=== PATIENT | male | born 1990 | race Caucasian/White ===

== ENCOUNTER 2019-11-01 02:54 | Emergency (ER) | payer OTHER, MEDICAID, SELFPAY ==
--- NOTE | 2019-11-01 03:02 | ED.GENADULT ---
HPI - General Adult General Chief complaint: Neck Pain/Injury Stated complaint: tightness in right shoulder/neck/legs Time Seen by Provider: 11/01/19 03:00 Source: patient Mode of arrival: Ambulatory Limitations: no limitations History of Present Illness HPI narrative: Patient is a 29-year-old male with a history of hydrocephalus. Has a SOIL CHECKER shunt in place here for evaluation of left sided neck/back/jaw muscle contractions. Patient states that it was a fairly sudden onset shortly prior to arrival. He states that he was sitting at that time. He states he is about to go to sleep. He reports that he is in no pain is just his muscles on the left side of his body are ?angela ?he states that is fairly uncomfortable. Has never had anything like this in the past. Has not tried anything for the symptoms prior to arrival Related Data Home Medications Medication Instructions Recorded Confirmed . (No Home Medications) #0 02/09/10 Allergies Allergy/AdvReac Type Severity Reaction Status Date / Time No Known Drug Allergies Allergy Verified 11/01/19 03:06 Review of Systems Constitutional Constitutional: Denies fever(s) and Denies headache(s) ENT Ears, Nose, Mouth, and Throat: Denies vertigo, Denies dizziness and Denies headache(s) Comments: Muscles angela on left-sided neck and shoulder Cardiovascular Cardiovascular: Denies chest pain and Denies dyspnea Respiratory Respiratory: Denies dyspnea Musculoskeletal Comments: The side of my body muscle contractions Integumentary/Breasts Skin/Breast: Denies lesions and Denies rash Neurologic Neurologic: Denies behavioral changes, Denies vertigo, Denies dizziness and Denies headache(s) Comments: Muscle contractions Psychiatric Psychiatric: Denies behavioral changes Hematologic/Lymphatic Hematologic/Lymphatic: Denies easy bleeding and Denies easy bruising Allergic/Immunologic Allergic/Immunologic: Denies urticaria Patient History Medical History Hydrocephalus (Acute) Social History Smoking Status: Current every day smoker Exam Initial Vital Signs Initial Vital Signs: Vital Signs Temperature 97.2 F L 11/01/19 03:03 Pulse Rate 108 H 11/01/19 03:03 Respiratory Rate 20 11/01/19 03:03 Blood Pressure 176/115 H 11/01/19 03:03 Pulse Oximetry 97 11/01/19 03:03 Const General: diaphoretic Limitations: mental status not altered HENMT Head: normal to inspection and normocephalic Neck Neck: No anterior neck swelling, No lymphadenopathy and torticollis Resp Effort & Inspection: normal respiratory effort Auscultation: clear to auscultation bilaterally Cardio Rate: tachycardic Rhythm: regular rhythm Back/Spine/Pelvis Other: Patient does have muscle fullness on the left side of his neck over the rhomboid/latissimus/trapezius compared to the right in Skin General: warm and other (Diaphoretic) Extrem General: capillary refill normal Psych Appearance: grossly normal and well kempt Course Orders Ordered: Discontinued Medications Cyclobenzaprine HCl (Flexeril 10 Mg Prepack) 1 bottle MISC SEEINSTR ONE Stop: 11/01/19 04:29 Diazepam (Valium) 5 mg PO NOW ONE Stop: 11/01/19 03:07 Last Admin: 11/01/19 03:14 Dose: 5 mg Documented by: DAVID Ketorolac Tromethamine (Toradol) 30 mg IM NOW ONE Stop: 11/01/19 03:07 Last Admin: 11/01/19 03:14 Dose: 30 mg Documented by: DAVID Vital Signs Vital signs: Vital Signs - 8 hr 11/01/19 03:03 11/01/19 03:44 11/01/19 04:00 Temperature 97.2 F L Pulse Rate 108 H 81 45 L Respiratory Rate 20 26 H 15 Blood Pressure 176/115 H Pulse Oximetry 97 98 98 11/01/19 04:01 11/01/19 04:30 Temperature Pulse Rate 43 L 75 Respiratory Rate 14 16 Blood Pressure 105/54 L 106/57 L Pulse Oximetry 98 96 Medical Decision Making [facility] [place] Narrative Medical decision making narrative: Patient reports a vast improvement of his symptoms after the medications given here in the ER. His tachycardia improved to the point where patient was somewhat bradycardic into the upper 40s/low 50s. This was a sinus bradycardia on the monitor. This improved very quickly when patient was stimulated. He was able to sleep for short period of time. Low suspicion for CVA given his clinical presentation. Unsure the exact etiology of why his muscle spasms however given his improvement of symptoms and lack of other findings will hold on further workup for now. He was given return precautions and follow-up instructions. He expressed understanding and agreement Discharge Plan Departure Patient Disposition: Home Clinical Impression: Muscle spasm Instructions: DI for Muscle Spasm Activity Restrictions/Additional Instructions: You have no restrictions on your activities. Use the muscle relaxers as needed. Recommend heat/ice and light stretching and massage. Contact your primary provider for follow-up. Return to the emergency department for any new or worsening symptoms Prescriptions: No Action . (No Home Medications) Qty: 0 RF: 0 Referrals: Emily Barnes MD [Primary Care Provider] -
[2019-11-01 03:03] VITALS: BP 176/115; PULSE 108; RESP 20; TEMP 36.2; O2SAT 97; BMI 27.3
[2019-11-01] MEDS: KETOROLAC 60 MG/2 ML VIAL 30 MG IM (03:14)
[2019-11-01] MEDS: diazePAM 5 MG TABLET PO (03:14)
--- NOTE | 2019-11-01 03:21 | PC.NURSE ---
Pt reports all over muscle spasms. Diaphoretic. Pt medicated per order.
[2019-11-01 03:44] VITALS: PULSE 81; RESP 26; O2SAT 98
[2019-11-01 04:00] VITALS: PULSE 45; RESP 15; O2SAT 98
[2019-11-01 04:01] VITALS: BP 105/54; PULSE 43; RESP 14; O2SAT 98
[2019-11-01 04:30] VITALS: BP 106/57; PULSE 75; RESP 16; O2SAT 96
[2019-11-01] MEDS: CYCLOBENZAPRINE 10 MG PREPACK 1 BOTTLE MISC (04:36)
== END 2019-11-01 04:40 | disposition home or self-care (01) ==
PROVIDERS: Emergency Provider Emergency Medicine; Family Provider Pediatrics; PCP Pediatrics
DX: M62.838 Other muscle spasm (principal); G91.9 Hydrocephalus, unspecified; R00.1 Bradycardia, unspecified
CPT/HCPCS: 96372; 99283; J1885

== ENCOUNTER 2019-11-02 01:07 | Emergency (ER) | payer OTHER, MEDICAID, SELFPAY ==
[2019-11-02 01:10] VITALS: BP 161/107; PULSE 79; RESP 20; TEMP 36.5; O2SAT 98; BMI 27.3
[2019-11-02] MEDS: diphenhydrAMINE 50 MG/ML VIAL 25 MG IV (01:25)
--- NOTE | 2019-11-02 01:29 | ED_ITS ---
HPI - General Adult General Chief complaint: Neuro Symptoms/Deficit Stated complaint: can't talk right - jaw wont close muscle spasm Time Seen by Provider: 11/02/19 01:09 Source: patient Mode of arrival: Ambulatory Limitations: no limitations History of Present Illness HPI narrative: 29-year-old male who was evaluated by myself approximately 24 hours ago for left-sided neck can face muscle spasms. He was given Valium and sent home with Flexeril. At the time of his discharge from that visit he stated that he was still having some jaw/facial twitching however he reported that his symptoms had much improved. After discharge from that visit he went home and went to bed. He stated that he woke up and felt ?normal? he was not having any symptoms throughout the day however as the afternoon went on and into the evening he stated that he started to feel like his jaw was starting to twitch again. He took the Flexeril that he was sent home with any thought that potentially his symptoms were improving a small amount however they got to the point to where he was having problems speaking and swallowing. He stated that his speaking problems were because he felt like his jaw was twitching in because he was having involuntary yawning movements. He states that he could swallow but because he was yawning so much this is why he was drooling. He was not having any neck symptoms like we had last evening. He denied any other associated symptoms. He denied any drugs other than the Flexeril that he was given last evening. Denies any alcohol. No new exposures. Related Data Home Medications Medication Instructions Recorded Confirmed . (No Home Medications) #0 02/09/10 Allergies Allergy/AdvReac Type Severity Reaction Status Date / Time No Known Drug Allergies Allergy Verified 11/01/19 03:06 Review of Systems Constitutional Constitutional: Denies chills, Denies fatigue, Denies fever(s), Denies frequent falls, Denies headache(s) and Denies weakness Eyes Eyes: Denies blurry vision, Denies change in vision and Denies diplopia ENT Ears, Nose, Mouth, and Throat: Denies dental pain, Denies vertigo, Denies dizziness, Denies otalgia, Denies facial pain, Denies headache(s), Denies nasal congestion, Denies nasal discharge, Denies disequilibrium, Denies sinus pain and Denies sore throat Comments: Twitching/muscle spasm left side of face Cardiovascular Cardiovascular: Denies chest pain, Denies irregular heart rhythm, Denies lightheadedness and Denies dyspnea Respiratory Respiratory: Denies dyspnea Gastrointestinal Gastrointestinal: Denies abdominal pain, Denies change in bowel habits, Denies diarrhea, Denies nausea and Denies vomiting Genitourinary Genitourinary: Denies oliguria, Denies difficulty urinating, Denies dysuria, Denies urinary frequency, Denies urinary hesitancy and Denies urinary incontine nce Genitourinary: Denies urinary frequency, Denies dysuria, Denies urinary incontinence and Denies urinary hesitancy Musculoskeletal Musculoskeletal: Denies tingling Comments: Left-sided face twitching Integumentary/Breasts Skin/Breast: Denies lesions and Denies rash Neurologic Neurologic: Denies behavioral changes, Denies confusion, Denies vertigo, Denies dizziness, Denies frequent falls, Denies headache(s), Denies tingling, Denies disequilibrium and Denies weakness Psychiatric Psychiatric: Denies anxiety, Denies behavioral changes, Denies confusion and De nies depression Endocrine Endocrine: Denies fatigue Hematologic/Lymphatic Hematologic/Lymphatic: Denies easy bleeding and Denies easy bruising Allergic/Immunologic Allergic/Immunologic: Denies urticaria Patient History Medical History Alcohol abuse (Acute) Hydrocephalus (Acute) Social History Smoking Status: Current every day smoker Smoking Status: Current every day smoker tobacco type: vaping alcohol intake frequency: 0-2 drinks per day Substance Use Type: does not use Exam Initial Vital Signs Initial Vital Signs: Vital Signs Temperature 97.7 F 11/02/19 01:10 Pulse Rate 79 11/02/19 01:10 Respiratory Rate 20 11/02/19 01:10 Blood Pressure 161/107 H 11/02/19 01:10 Pulse Oximetry 98 11/02/19 01:10 Const General: cooperative, healthy appearing, comfortable and No diaphoretic Limitations: mental status not altered [facility] Head: normal to inspection and normocephalic Nose: external nose normal Mouth: oral mucosae normal, lip normal and tongue normal Teeth and gingiva: dentition normal Eyes Pupils: PERRL Neck Neck: no meningeal signs, No anterior neck swelling and No torticollis Lymphatic: No lymphadenopathy Resp Effort & Inspection: normal respiratory effort Auscultation: clear to auscultation bilaterally Cardio Rate: regular rate Rhythm: regular rhythm GI Inspection: non-distended Palpation: soft and No tender Skin Lesions: no lesions Rashes: no rashes Neuro General: patient alert, patient awake and patient oriented x3 Cognition: normal cognition Speech: speech normal Gait: normal gait Motor: muscle tone normal throughout Sensory Exam: no sensory deficits noted Extrem General: normal to inspection and capillary refill normal Psych Appearance: grossly normal and well kempt Scores GCS Arnold coma scale eye opening: Spontaneous Arnold coma scale verbal response: Orientated Arnold coma scale motor response: Obey commands [place] coma scale total score: 15 Course Orders Ordered: ED Orders 11/02/19 01:28 EKG-12 Lead Stat 11/02/19 01:31 Complete Blood Count AUTO DIFF Stat 11/02/19 01:49 CT head/brain wo con Stat 11/02/19 02:00 Acetaminophen Stat Comprehensive Metabolic Panel Stat Creatine Kinase Stat Ethanol (ETOH) Stat Magnesium Stat Phosphorous Stat Salicylate Stat Thyroid Stimulating Hormone Stat 11/02/19 03:00 Urine Drug Screen, Rapid Stat Discontinued Medications Cyclobenzaprine HCl (Flexeril 10 Mg Prepack) 1 bottle MISC SEEINSTR ONE Stop: 11/02/19 03:08 Last Admin: 11/02/19 03:14 Dose: 1 bottle Documented by: ANNIKA Diphenhydramine HCl (Benadryl) 25 mg IV NOW ONE Stop: 11/02/19 01:18 Last Admin: 11/02/19 01:25 Dose: 25 mg Documented by: DAVID Vital Signs Vital signs: Vital Signs - 8 hr 11/02/19 01:10 11/02/19 01:45 11/02/19 02:06 Temperature 97.7 F Pulse Rate 79 74 66 Respiratory Rate 20 20 18 Blood Pressure 161/107 H Pulse Oximetry 98 99 99 11/02/19 02:30 11/02/19 03:00 11/02/19 03:02 Temperature Pulse Rate 66 77 52 L Respiratory Rate 17 33 H 19 Blood Pressure 136/61 Pulse Oximetry 98 98 98 Medical Decision Making Lab Data Lab results reviewed: Yes I reviewed the patient's lab results. Result diagrams: 11/02/19 01:31 11/02/19 02:00 Labs: Lab Results 11/02/19 11/02/19 11/02/19 Range/Units 01:31 02:00 02:00 WBC 6.4 (4.5-11.0) X10^3/uL RBC 5.13 (4.5-5.9) X10^6/uL Hgb 14.9 (13.5-17.5) g/dL Hct 45.0 (41-53) % MCV 87.7 (80-100) fL MCH 29.0 (26-34) PG MCHC 33.0 (30-36) % RDW 14.7 (11.6-14.8) % Plt Count 280 (150-400) X10^3/uL Neut % (Auto) 48.8 L (50-75) % Lymph % (Auto) 39.7 (25-40) % Wetzel % (Auto) 10.1 (3-14) % Eos % (Auto) 0.9 L (2-4) % Baso % (Auto) 0.5 (0-2) % Neut # (Auto) 3100 (9153-0774) /uL Lymph # (Auto) 2500 (9565-1430) /uL Wetzel # (Auto) 600 (0-900) /uL Eos # (Auto) 100 (0-450) /uL Baso # (Auto) 0 (0-100) /uL Sodium 140 (137-145) mmol/L Potassium 4.0 (3.4-5.1) mmol/L Chloride 104 (98-107) mmol/L Carbon Dioxide 32 (22-32) mmol/L BUN 12 (9-20) mg/dL Creatinine 0.99 (0.66-1.25) mg/dL Estimated GFR > 60.0 (>60) mL/min BUN/Creatinine Ratio 12.1 (6-22) Glucose 99 (70-100) mg/dL Calcium 9.9 (8.4-10.2) mg/dL Phosphorus 3.5 (2.5-4.5) mg/dL Magnesium 1.9 (1.6-2.3) mg/dL Total Bilirubin 0.7 (0.2-1.3) mg/dL AST 33 (17-59) IU/L ALT 26 (<50) IU/L Alkaline Phosphatase 91 (38-126) U/L Total Creatine Kinase (55-170) U/L Total Protein 7.5 (6.3-8.2) g/dL Albumin 4.6 (3.5-5.0) g/dL Globulin 2.9 (1.7-4.1) g/dL Albumin/Globulin Ratio 1.6 (1.0-2.8) TSH (0.47-4.68) uIU/mL Salicylates (<20) mg/dL U Opiates 300ng/mL cut (Negative) Ur Oxycodone Screen (Negative) Urine Methadone Screen (Negative) Acetaminophen (10-30) ug/mL Ur Barbiturates Screen (Negative) U Tricyclic Antidepress (Negative) Ur Phencyclidine Scrn (Negative) Ur Amphetamines Screen (Negative) U Methamphetamines Scrn (Negative) Ur MDMA Scrn (Ecstasy) (Negative) U Benzodiazepines Scrn (Negative) Urine Cocaine Screen (Negative) U Marijuana (THC) Screen (Negative) Ethyl Alcohol ( - 10) mg/dL 11/02/19 11/02/19 11/02/19 Range/Units 02:00 02:00 02:00 WBC (4.5-11.0) X10^3/uL RBC (4.5-5.9) X10^6/uL Hgb (13.5-17.5) g/dL Hct (41-53) % MCV (80-100) fL MCH (26-34) PG MCHC (30-36) % RDW (11.6-14.8) % Plt Count (150-400) X10^3/uL Neut % (Auto) (50-75) % Lymph % (Auto) (25-40) % Wetzel % (Auto) (3-14) % Eos % (Auto) (2-4) % Baso % (Auto) (0-2) % Neut # (Auto) (2645-7918) /uL Lymph # (Auto) (7264-3505) /uL Wetzel # (Auto) (0-900) /uL Eos # (Auto) (0-450) /uL Baso # (Auto) (0-100) /uL Sodium (137-145) mmol/L Potassium (3.4-5.1) mmol/L Chloride (98-107) mmol/L Carbon Dioxide (22-32) mmol/L BUN (9-20) mg/dL Creatinine (0.66-1.25) mg/dL Estimated GFR (>60) mL/min BUN/Creatinine Ratio (6-22) Glucose (70-100) mg/dL Calcium (8.4-10.2) mg/dL Phosphorus (2.5-4.5) mg/dL Magnesium (1.6-2.3) mg/dL Total Bilirubin (0.2-1.3) mg/dL AST (17-59) IU/L ALT (<50) IU/L Alkaline Phosphatase (38-126) U/L Total Creatine Kinase 271 H (55-170) U/L Total Protein (6.3-8.2) g/dL Albumin (3.5-5.0) g/dL Globulin (1.7-4.1) g/dL Albumin/Globulin Ratio (1.0-2.8) TSH 3.80 (0.47-4.68) uIU/mL Salicylates < 1.0 (<20) mg/dL U Opiates 300ng/mL cut (Negative) Ur Oxycodone Screen (Negative) Urine Methadone Screen (Negative) Acetaminophen < 10 L (10-30) ug/mL Ur Barbiturates Screen (Negative) U Tricyclic Antidepress (Negative) Ur Phencyclidine Scrn (Negative) Ur Amphetamines Screen (Negative) U Methamphetamines Scrn (Negative) Ur MDMA Scrn (Ecstasy) (Negative) U Benzodiazepines Scrn (Negative) Urine Cocaine Screen (Negative) U Marijuana (THC) Screen (Negative) Ethyl Alcohol < 10 ( - 10) mg/dL 11/02/19 Range/Units 03:00 WBC (4.5-11.0) X10^3/uL RBC (4.5-5.9) X10^6/uL Hgb (13.5-17.5) g/dL Hct (41-53) % MCV (80-100) fL MCH (26-34) PG MCHC (30-36) % RDW (11.6-14.8) % Plt Count (150-400) X10^3/uL Neut % (Auto) (50-75) % Lymph % (Auto) (25-40) % Wetzel % (Auto) (3-14) % Eos % (Auto) (2-4) % Baso % (Auto) (0-2) % Neut # (Auto) (3512-3697) /uL Lymph # (Auto) (4791-1143) /uL Wetzel # (Auto) (0-900) /uL Eos # (Auto) (0-450) /uL Baso # (Auto) (0-100) /uL Sodium (137-145) mmol/L Potassium (3.4-5.1) mmol/L Chloride (98-107) mmol/L Carbon Dioxide (22-32) mmol/L BUN (9-20) mg/dL Creatinine (0.66-1.25) mg/dL Estimated GFR (>60) mL/min BUN/Creatinine Ratio (6-22) Glucose (70-100) mg/dL Calcium (8.4-10.2) mg/dL Phosphorus (2.5-4.5) mg/dL Magnesium (1.6-2.3) mg/dL Total Bilirubin (0.2-1.3) mg/dL AST (17-59) IU/L ALT (<50) IU/L Alkaline Phosphatase (38-126) U/L Total Creatine Kinase (55-170) U/L Total Protein (6.3-8.2) g/dL Albumin (3.5-5.0) g/dL Globulin (1.7-4.1) g/dL Albumin/Globulin Ratio (1.0-2.8) TSH (0.47-4.68) uIU/mL Salicylates (<20) mg/dL U Opiates 300ng/mL cut Negative (Negative) Ur Oxycodone Screen Negative (Negative) Urine Methadone Screen Negative (Negative) Acetaminophen (10-30) ug/mL Ur Barbiturates Screen Negative (Negative) U Tricyclic Antidepress Negative (Negative) Ur Phencyclidine Scrn Negative (Negative) Ur Amphetamines Screen Negative (Negative) U Methamphetamines Scrn Negative (Negative) Ur MDMA Scrn (Ecstasy) Negative (Negative) U Benzodiazepines Scrn Negative (Negative) Urine Cocaine Screen Negative (Negative) U Marijuana (THC) Screen Negative (Negative) Ethyl Alcohol ( - 10) mg/dL Imaging Data CT scan - head: Radiologist's Impression: No evidence of acute infarct or intraparenchymal hemorrhage. A right-sided shunt catheters noted. No definite hydrocephalus. Larger his CSF attenuation is located posterior to the cerebellum, as detailed above. Correlation prior imaging is advised ECG Data Attestation: I personally reviewed and interpreted this ECG as follows: Prior ECG tracings: not available for review Interpretation: Sinus rhythm Normal axis Normal QRS Normal QTC No ST T wave changes MDM Narrative Medical decision making narrative: Patient's symptoms today were similar but certainly not as bad as with your approximately 24 hours ago. He had no respiratory distress. He was tolerating his secretions. There was no definitive muscle spasm felt on his exam. Unsure the exact etiology symptoms however he was doing quite a bit of involuntary yawning. And he did have somewhat of a muffled voice. He did remind me of prior patients that I have seen with tardive dyskinesia. Patient is on no medications that would potentially cause this type of reaction. He was given 25 mg of Benadryl and approximately 20 minutes after administration of this medication patient had a relatively sudden complete resolution of all of his symptoms. His electrolytes were unremarkable. UDS unremarkable. He did not fit into any specific toxidrome. He denied any exposures. His alcohol was negative. Head CT was performed given his prior issues with hydrocephalus and this did not show any acute pathology. Considered other etiologies such as electrolyte but labs are unremarkable. Also considered potentially these were focal seizures and I did give the patient information to make contact with the primary provider so that he can have follow-up with Neurology. Also considered psychologic causes of his symptoms as well. At the time of discharge from this visit patient states that he was 100% back to normal again. Will hold on further workup. Since he stated that he thought maybe the Flexeril helped him somewhat will send him home with a no other prepack of this. He is also going to purchase Benadryl [id number] since his symptoms did improve after receiving the Benadryl. He was given return precautions and follow-up instructions. He expressed understanding and agreement. Discharge Plan Departure Patient Disposition: Home Clinical Impression: Muscle spasm Discharge Date/Time: 11/02/19 03:18 Activity Restrictions/Additional Instructions: During your ER visit in the overnight hours from 10/30-10/31 you were given a medicine called Valium in you were also sent home with a medicine called Flexeril. During your ER visit in the overnight hours from 10/31-11/01 you were given a medicine called Benadryl and you were again sent home with Flexeril. Please show this note to anyone at your outpatient rehab program to inform them of the medicines you have received. I highly recommend that you contact the health resources coordinator here at the [facility] at [phone]. This individual can help you with establishing a primary provider. It is important that you have a relationship with a neurologist given your prior history and the fact that your symptoms today could potentially be partial seizures. If you start having symptoms again you can take [id number] Benadryl since that seemed to help you today. Use the muscle relaxers as needed as well. Return to the emergency department for any new or worsening symptoms Prescriptions: No Action . (No Home Medications) Qty: 0 RF: 0 Referrals: Emily Barnes MD [Primary Care Provider] -
[2019-11-02 01:44] LABS: Add Manual Diff / Slide Review NO; Basophils Absolute Auto 0 /uL (0-100); Basophils Percent Auto 0.5 % (0-2); Eosinophils Absolute Auto 100 /uL (0-450); Eosinophils Percent Auto 0.9 % (2-4); Hemoglobin 14.9 g/dL (13.5-17.5); Lymphocytes Absolute Auto 2500 /uL (1100-4500); Lymphocytes Percent Auto 39.7 % (25-40); Mean Corpuscular Volume 87.7 fL (80-100); Monocytes Absolute Auto 600 /uL (0-900); Monocytes Percent Auto 10.1 % (3-14); Neutrophils Absolute Auto 3100 /uL (1500-7000); Neutrophils Percent Auto 48.8 % (50-75); Platelet Count 280 X10^3/uL (150-400); Red Blood Cell Count 5.13 X10^6/uL (4.5-5.9); Red Cell Distribution Width 14.7 % (11.6-14.8); White Blood Cell Count 6.4 X10^3/uL (4.5-11.0)
[2019-11-02 01:45] VITALS: PULSE 74; RESP 20; O2SAT 99
--- NOTE | 2019-11-02 01:49 | DI.CT.S_ITS ---
PROCEDURE: CT HEAD/BRAIN WO CON INDICATIONS: shunt wval for increased ICP TECHNIQUE: Noncontrast 4.5 mm thick angled axial sections acquired from the foramen magnum to the vertex, with coronal and sagittal reformats. For radiation dose reduction, the following was used: automated exposure control, adjustment of mA and/or kV according to patient size. COMPARISON: None. FINDINGS: Image quality: Excellent. CSF spaces: A ventriculoperitoneal shunt is visualized and enters in the right posterior parietal region. Distal tip of the shunt catheter terminates within the right lateral ventricle. Basal cisterns are patent. No extra-axial fluid collections. Ventricles are symmetric in size and shape. Brain: No midline shift. No intracranial masses or hemorrhage. Pérez-white matter interface is normal. There is an extra-axial fluid attenuation lesion versus prominent CSF space posterior to the cerebellum measuring approximately 6.6 x 4.3 cm as measured on axial image 14. Skull and face: Calvarium and visualized facial bones are intact, without suspicious lesions. Sinuses: Visualized sinuses and mastoids are clear. IMPRESSION: 1. CT head without acute intracranial abnormalities. No acute hemorrhage. 2. Right-sided ventriculoperitoneal shunt catheter is noted. No definite hydrocephalus visualized. However, no prior studies available to compare for stability of ventricular configuration. 3. Large area of CSF attenuation posterior to the cerebellum. This may represent prominent CSF space versus possible arachnoid cyst. Recommend correlation with prior imaging versus further characterization with contrast enhanced MRI. No significant discrepancy with the assembler 1st shift radiology preliminary report. Dictated by: Sreedhar Elias M.D. on 11/02/2019 at 7:08 Approved by: Sreedhar Elias M.D. on 11/02/2019 at 7:12
--- NOTE | 2019-11-02 01:56 | PC.NURSE ---
Patient states experiencing locked jaw that started approximately 2300. While in room patient repeatedly opening jaw, as though yawning. Patient states this movement is involuntary. Denies any pain, it's just very uncomfortable. Patient alert and oriented x4, some difficulty controlling secretions.
[2019-11-02 02:06] VITALS: PULSE 66; RESP 18; O2SAT 99
[2019-11-02 02:24] LABS: Magnesium 1.9 mg/dL (1.6-2.3); Phosphorous 3.5 mg/dL (2.5-4.5)
[2019-11-02 02:25] LABS: Alanine Aminotransferase 26 IU/L (<50); Albumin 4.6 g/dL (3.5-5.0); Albumin Globulin Ratio 1.6 (1.0-2.8); Alkaline Phosphatase 91 U/L (38-126); Aspartate Aminotransferase 33 IU/L (17-59); BUN Creatinine Ratio 12.1 (6-22); Bilirubin Total 0.7 mg/dL (0.2-1.3); Blood Urea Nitrogen 12 mg/dL (9-20); Calcium 9.9 mg/dL (8.4-10.2); Carbon Dioxide 32 mmol/L (22-32); Chloride 104 mmol/L (98-107); Creatine Kinase 271 U/L (55-170); Estimated Glomerular Filt Rate > 60.0 mL/min (>60); Globulin 2.9 g/dL (1.7-4.1); Glucose 99 mg/dL (70-100); HEMOLYSIS < 15 (0-50); Sodium 140 mmol/L (137-145); Total Protein 7.5 g/dL (6.3-8.2)
[2019-11-02 02:26] LABS: Acetaminophen < 10 ug/mL (10-30); Ethanol (ETOH) < 10 mg/dL; Salicylate < 1.0 mg/dL (<20)
[2019-11-02 02:30] VITALS: PULSE 66; RESP 17; O2SAT 98
[2019-11-02 03:00] VITALS: PULSE 77; RESP 33; O2SAT 98
[2019-11-02 03:02] VITALS: BP 136/61; PULSE 52; RESP 19; O2SAT 98
[2019-11-02 03:14] LABS: Ur Creatinine 20 (Normal); Ur Specific Gravity 1.015 (Normal); Urine pH 9 (Normal)
[2019-11-02] MEDS: CYCLOBENZAPRINE 10 MG PREPACK 1 BOTTLE MISC (03:14)
[2019-11-02 03:15] LABS: UR Morphine/Opiate cutoff 300 Negative (Negative); Urine Amphetamines Negative (Negative); Urine Barbiturates Negative (Negative); Urine Benzodiazepines Negative (Negative); Urine Cocaine Negative (Negative); Urine MDMA Negative (Negative); Urine Methadone Negative (Negative); Urine Methamphetamines Negative (Negative); Urine Oxycodone Negative (Negative); Urine Phencyclidine Negative (Negative); Urine Tetrahydrocannabinol Negative (Negative); Urine Tricyclic Antidepressant Negative (Negative)
== END 2019-11-02 03:18 | disposition home or self-care (01) ==
PROVIDERS: Emergency Provider Emergency Medicine; Family Provider Pediatrics; PCP Pediatrics
DX: M62.838 Other muscle spasm (principal); R29.818 Other symptoms and signs involving the nervous system
CPT/HCPCS: 36415; 70450; 80053; 80305; 80320; 80329; 82550; 83735; 84100; 84443; 85025; 93005; 96374; 99284; G0480; J1200